=== PATIENT | male | born 1975 | race Caucasian/White ===

== ENCOUNTER 2020-05-07 | Observation (INO) ==
[2020-05-07] MEDS ORDERED: Ringers Solution, Lactated 1,000 ML IVC ONE ×3 (00:03→03:11)
[2020-05-07 00:57] LABS: Amphetamine Screen,Urine Positive ng/mL (Cutoff=1000); Barbiturate Screen,Urine Negative ng/mL (Cutoff=200); Benzodiazepines Screen,Urine Negative ng/mL (Cutoff=200); Cannabinoid Screen,Urine Negative ng/mL (Cutoff = 50); Cocaine Screen,Urine Negative ng/mL (Cutoff= 300); Opiate Screen,Urine Negative ng/mL (Cutoff=300); Phencyclidine Screen,Urine Negative ng/mL (Cutoff=25)
[2020-05-07 01:09] LABS: VBG HCO3 26 mEq/L (21-27); VBG PCO2 70 mmHg (41-51); VBG PH 7.18 pH Units (7.32-7.42); VBG PO2 43 mmHg (25-50)
[2020-05-07 01:09] LABS: Immature Granulocytes % 0.4 % (0-4); Red Cell Distribution Width 12.8 % (11.5-14.5)
[2020-05-07 01:10] LABS: INR 1.1; Prothrombin Time 12.5 Seconds (9.4-12.1)
[2020-05-07 01:11] LABS: Basophils % 0.3 %; Hemoglobin 14.9 g/dL (12.9-16.9); Lymphocytes # 0.7 K/mcL (0.6-4.6); Mean Corpuscular HGB Conc 26.9 g/dL (31.6-35.5); Mean Corpuscular Hemoglobin 29.8 pg (28.0-33.3); Mean Corpuscular Volume 110.6 fL (83.0-100.0); Mean Platelet Volume 11.5 fL (9.4-12.4); Monocytes # 0.7 K/mcL (0.0-1.3); Monocytes % 5.1 %; Neutrophils # 12.5 K/mcL (1.6-8.9); Platelet Count 300 K/mcL (140-400); Segmented Neutrophils % 89.2 %
[2020-05-07 01:12] LABS: Hematocrit 55.3 % (37.5-50.1)
[2020-05-07 01:13] LABS: Activated Partial Thrombo Time 23.9 Seconds (26.0-36.0)
[2020-05-07] MEDS ORDERED: cefTRIAXone 1,000 MG in Water for inj. (sterile) 10 ML IVP ONE (01:14)
[2020-05-07 01:45] LABS: Platelet Estimate Normal (Normal); Poikilocytosis 1+ (Not Present)
[2020-05-07 01:46] LABS: Anisocytosis 1+ (Not Present); Hypochromasia Present (Not Present)
[2020-05-07] MEDS ORDERED: Potassium Chloride 40 MEQ, Lidocaine 1% 2 ML in 0.9 % Sodium Chloride 500 ML IVPB ONE (02:03)
[2020-05-07 02:04] LABS: Acetaminophen < 10 mcg/mL (10-20); Alanine Aminotransferase 55 Units/L (7-52); Albumin/Globulin Ratio 1.1 (1.1-2.2); Alkaline Phosphatase 193 Units/L (34-104); Aspartate Amino Transferase 21 Units/L (13-39); BUN/Creatinine Ratio 20 (6-26); Bilirubin,Total 0.4 mg/dL (0.3-1.0); Blood Urea Nitrogen 30 mg/dL (6-20); Calcium 9.8 mg/dL (8.6-10.3); Carbon Dioxide 21 mEq/L (23-29); Chloride 98 mEq/L (98-107); Ethanol < 10 mg/dL (Less than 10); Globulin 3.8 g/dL (2.4-3.5); Magnesium 2.5 mg/dL (1.6-2.6); Osmolality,Calculated 380 (280-300); Phosphorous 4.4 mg/dL (2.7-4.5); Potassium 2.4 mEq/L (3.5-5.1); Salicylate < 2.5 mg/dL (15.0-30.0); Sodium 134 mEq/L (136-145); Total Protein 7.8 g/dL (6.4-8.9); Troponin I 0.03 ng/mL (< 0.04); eGFR For African Americans > 60 (> 60); eGFR For Non-African Americans 50 (> 60)
[2020-05-07 04:17] LABS: Alanine Aminotransferase 53 Units/L (7-52); Albumin 3.9 g/dL (3.5-5.7); Albumin/Globulin Ratio 1.1 (1.1-2.2); Alkaline Phosphatase 183 Units/L (34-104); Aspartate Amino Transferase 20 Units/L (13-39); BUN/Creatinine Ratio 20 (6-26); Bilirubin,Total 0.4 mg/dL (0.3-1.0); Blood Urea Nitrogen 30 mg/dL (6-20); Calcium 9.7 mg/dL (8.6-10.3); Carbon Dioxide 23 mEq/L (23-29); Chloride 107 mEq/L (98-107); Globulin 3.6 g/dL (2.4-3.5); Glucose 1423 mg/dL (70-105); Osmolality,Calculated 374 (280-300); Potassium 2.6 mEq/L (3.5-5.1); Sodium 142 mEq/L (136-145); Total Protein 7.5 g/dL (6.4-8.9); eGFR For African Americans > 60 (> 60); eGFR For Non-African Americans 50 (> 60)
[2020-05-07] MEDS ORDERED: Naloxone 0.4 MG/ML INJ IVP PRN (05:19)
[2020-05-07] MEDS ORDERED: Ondansetron 4 MG/2 ML VIAL IVP PRN (05:19)
[2020-05-07 05:27] LABS: ABG Base Excess -2 mEq/L (-2 to 3); ABG HCO3 27 mEq/L (21-27); ABG Oxygen Saturation 99 % (95-98); ABG PCO2 63 mmHg (35-45); ABG PH 7.25 pH Units (7.32-7.45); ABG PO2 144 mmHg (85-104); ABG TCO2 29 mEq/L (20-26); Blood Gas Modality BiLevel
[2020-05-07 06:13] LABS: Adenovirus Not Detected (Not Detect); Bordetella Pertussis Not Detected (Not Detect); Chlamydophila pneumoniae Not Detected (Not Detect); Coronavirus 229E Not Detected (Not Detect); Coronavirus HKU1 Not Detected (Not Detect); Coronavirus NL63 Not Detected (Not Detect); Coronavirus OC43 Not Detected (Not Detect); Human Metapneumovirus Not Detected (Not Detect); Human Rhinovirus/Enterovirus Not Detected (Not Detect); Influenza A Subtype 2009 H1 Not Detected (Not Detect); Influenza B Not Detected (Not Detect); Mycoplasma pneumoniae Not Detected (Not Detect); Parainfluenza Virus 1 Not Detected (Not Detect); Parainfluenza Virus 2 Not Detected (Not Detect); Parainfluenza Virus 3 Not Detected (Not Detect); Parainfluenza Virus 4 Not Detected (Not Detect); Respiratory Syncytial Virus Not Detected (Not Detect); SARS-CoV-2 Not Detected (Not Detect)
[2020-05-07] MEDS ORDERED: Dexmedetomidine HCl 400 MCG/100 ML MLS IVC ONE (06:17)
[2020-05-07 06:29] LABS: VBG HCO3 28 mEq/L (21-27); VBG PCO2 65 mmHg (41-51); VBG PH 7.25 pH Units (7.32-7.42); VBG PO2 49 mmHg (25-50)
[2020-05-07 06:34] LABS: Glucose 1825 mg/dL (70-105)
[2020-05-07] MEDS: Ringers Solution, Lactated 1,000 ML IVC SCH ×2 (06:48→13:10)
[2020-05-07] MEDS: Dexmedetomidine HCl 400 MCG/100 ML MLS IVC SCH ×4 (06:55→22:50)
[2020-05-07 07:28] LABS: Estimated Average Glucose 355 mg/dl
[2020-05-07] MEDS: Piperacillin/Tazobactam 3.375 GM in 0.9 % Sodium Chloride Mini Bag 100 ML IVPB SCH ×2 (07:47→16:14)
[2020-05-07] MEDS ORDERED: Vancomycin 1,750 MG/517.5 ML IV.SOLN IVPB ONE (08:00)
[2020-05-07 09:29] LABS: Calcium 10.3 mg/dL (8.6-10.3); Potassium 3.1 mEq/L (3.5-5.1)
[2020-05-07 10:55] LABS: VBG HCO3 28 mEq/L (21-27); VBG PCO2 70 mmHg (41-51); VBG PH 7.21 pH Units (7.32-7.42); VBG PO2 46 mmHg (25-50)
[2020-05-07 11:00] LABS: VBG Ionized Calcium 1.35 mmol/L (1.15-1.35)
[2020-05-07 11:19] LABS: Albumin 3.6 g/dL (3.5-5.7); Albumin/Globulin Ratio 1.1 (1.1-2.2); Bilirubin,Total 0.5 mg/dL (0.3-1.0); Calcium 9.9 mg/dL (8.6-10.3); Globulin 3.4 g/dL (2.4-3.5); Magnesium 2.5 mg/dL (1.6-2.6); Phosphorous 2.6 mg/dL (2.7-4.5); Potassium 3.4 mEq/L (3.5-5.1)
[2020-05-07] MEDS ORDERED: *HR* Midazolam HCl 5 MG/5 ML VIAL IVP ONE (13:14)
[2020-05-07 13:24] LABS: Bacteria,Urine Few per hpf (None-Few); Bilirubin,Urine Negative (Negative); Blood,Urine Moderate (Negative); Clarity,Urine Clear (Clear); Color,Urine Light-Yellow (Yellow); Glucose,Urine (UA) >=1000 mg/dL (Normal); Ketones,Urine Negative (Negative); Leukocyte Esterase,Urine Negative (Negative); Mucus,Urine Few per lpf (None-Few); Nitrite,Urine Negative (Negative); Protein,Urine Trace mg/dL (Neg-Trace); Specific Gravity,Urine > 1.030 (1.010-1.025); Urobilinogen,Urine Normal (Normal); WBC,Urine 15-30 per hpf (0-3)
[2020-05-07 13:33] LABS: Creatinine,Urine 65 mg/dL; Sodium, Urine < 10.0 mEq/L
[2020-05-07 15:14] LABS: Calcium 9.6 mg/dL (8.6-10.3); Potassium 3.9 mEq/L (3.5-5.1)
[2020-05-07] MEDS ORDERED: D5% in 0.45% NACL w KCl 20 MEQ/1,000 ML MLS IVC PRN (15:20)
[2020-05-07] MEDS ORDERED: *HR* Dextrose 50 % in Water (Vial) 50 ML VIAL IVP PRN (15:20)
[2020-05-07] MEDS ORDERED: Insulin Human Regular 100 UNIT in 0.9 % Sodium Chloride 100 ML IVC SCH (15:30)
[2020-05-07] MEDS: Insulin Human Regular 100 UNIT in 0.9 % Sodium Chloride 100 ML IVC SCH (16:00)
[2020-05-07] MEDS: *HR* Heparin 5,000 UNIT/ML VIAL SQ SCH (16:14)
[2020-05-07 18:46] LABS: Potassium 2.2 mEq/L (3.5-5.1)
[2020-05-07] MEDS ORDERED: Potassium Chloride 40 MEQ in D5% in Water 1,000 ML IVC SCH (19:00)
[2020-05-07] MEDS ORDERED: *HR* PHENYLEPHRINE 1,000 MCG/10 ML SYRINGE IVP ONE (19:34)
[2020-05-07] MEDS ORDERED: EPHEDrine 50 MG/ML VIAL ONE (19:35)
[2020-05-07] MEDS ORDERED: *HR* FentaNYL (PF) 100 MCG/2 ML VIAL ONE (19:35)
[2020-05-07] MEDS ORDERED: *HR* Succinylcholine 200 MG/10 ML VIAL IVP ONE (19:35)
[2020-05-07] MEDS ORDERED: *HR* Etomidate 40 MG/20 ML VIAL IVP ONE (19:36)
[2020-05-07] MEDS ORDERED: 0.9 % Sodium Chloride 1,000 ML ONE (19:38)
[2020-05-07] MEDS: Norepinephrine 4 MG/254 ML IV.SOLN IVC SCH (19:46)
[2020-05-07] MEDS ORDERED: Vancomycin 1,250 MG/262.5 ML IV.SOLN IVPB SCH (20:00)
[2020-05-07] MEDS ORDERED: Potassium Chloride Elixir 20 MEQ/15 ML UDC GTUBE ONE (20:06)
[2020-05-07] MEDS ORDERED: Artificial Tears SOLN 15 ML BOTTLE BOTH EYES PRN (20:10)
[2020-05-07 20:38] LABS: ABG Base Excess -3 mEq/L (-2 to 3); ABG HCO3 25 mEq/L (21-27); ABG Oxygen Saturation 96 % (95-98); ABG PCO2 51 mmHg (35-45); ABG PH 7.29 pH Units (7.32-7.45); ABG PO2 93 mmHg (85-104); ABG TCO2 26 mEq/L (20-26); Blood Gas Modality ASSIST CONTROL; Blood Gas VT 500 cc
[2020-05-07 20:46] LABS: VBG Ionized Calcium 1.38 mmol/L (1.15-1.35)
[2020-05-07] MEDS: FentaNYL (PF) 1,000 MCG/100 ML IV.SOLN IVC SCH (20:55)
[2020-05-07 21:07] LABS: BUN/Creatinine Ratio 18 (6-26); Blood Urea Nitrogen 42 mg/dL (6-20); Calcium 9.5 mg/dL (8.6-10.3); Carbon Dioxide 24 mEq/L (23-29); Chloride 128 mEq/L (98-107); Glucose 771 mg/dL (70-105); Magnesium 2.7 mg/dL (1.6-2.6); Osmolality,Calculated 376 (280-300); Phosphorous < 1.0 mg/dL (2.7-4.5); Sodium 159 mEq/L (136-145); eGFR For African Americans 37 (> 60); eGFR For Non-African Americans 30 (> 60)
[2020-05-07] MEDS: Vancomycin 1,500 MG/265 ML IV.SOLN IVPB SCH (21:35)
[2020-05-07] MEDS: Chlorhexidine Rinse 15 ML MOUTHWASH MM SCH (22:06)
[2020-05-07 23:37] LABS: BUN/Creatinine Ratio 18 (6-26); Blood Urea Nitrogen 44 mg/dL (6-20); Calcium 9.2 mg/dL (8.6-10.3); Carbon Dioxide 23 mEq/L (23-29); Chloride 126 mEq/L (98-107); Glucose 799 mg/dL (70-105); Magnesium 2.5 mg/dL (1.6-2.6); Osmolality,Calculated 366 (280-300); Phosphorous < 1.0 mg/dL (2.7-4.5); Potassium 6.3 mEq/L (3.5-5.1); Sodium 153 mEq/L (136-145); eGFR For African Americans 34 (> 60); eGFR For Non-African Americans 28 (> 60)
[2020-05-08] MEDS: Piperacillin/Tazobactam 3.375 GM in 0.9 % Sodium Chloride Mini Bag 100 ML IVPB SCH ×2 (00:16→09:23)
[2020-05-08] MEDS: Artificial Tears SOLN 15 ML BOTTLE BOTH EYES SCH ×5 (00:34→12:40)
[2020-05-08] MEDS: Norepinephrine 4 MG/254 ML IV.SOLN IVC SCH ×4 (00:40→12:41)
[2020-05-08 01:28] LABS: Calcium 9.1 mg/dL (8.6-10.3); Potassium 6.9 mEq/L (3.5-5.1)
[2020-05-08] MEDS ORDERED: Insulin Human Regular 10 UNIT in 0.9 % Sodium Chloride 10 ML IV ONE (01:32)
[2020-05-08] MEDS: FentaNYL (PF) 1,000 MCG/100 ML IV.SOLN IVC SCH ×2 (01:39→07:30)
[2020-05-08] MEDS ORDERED: Albuterol Neb 7.5 MG, Sodium Chloride for inhalation 12 ML IH ONE (01:44)
[2020-05-08] MEDS ORDERED: Albuterol 2.5 MG/3 ML NEBULIZER IH ONE (02:06)
[2020-05-08] MEDS ORDERED: Albuterol 2.5 MG/3 ML NEBULIZER ONE (02:08)
[2020-05-08 02:17] LABS: ABG Base Excess -1 mEq/L (-2 to 3); ABG HCO3 26 mEq/L (21-27); ABG Oxygen Saturation 96 % (95-98); ABG PCO2 53 mmHg (35-45); ABG PO2 89 mmHg (85-104); ABG TCO2 28 mEq/L (20-26); Blood Gas Modality VC; Blood Gas VT 500 cc
[2020-05-08 02:38] LABS: VBG Ionized Calcium 1.29 mmol/L (1.15-1.35)
[2020-05-08 03:05] LABS: Calcium 9.3 mg/dL (8.6-10.3)
[2020-05-08] MEDS ORDERED: Acetaminophen IV 1,000 MG/100 ML BAG IVPB ONE (03:26)
[2020-05-08] MEDS ORDERED: D5% in Water 1,000 ML IVC SCH (04:15)
[2020-05-08 04:30] LABS: ABG Base Excess -5 mEq/L (-2 to 3); ABG HCO3 23 mEq/L (21-27); ABG Oxygen Saturation 95 % (95-98); ABG PCO2 53 mmHg (35-45); ABG PH 7.25 pH Units (7.32-7.45); ABG PO2 87 mmHg (85-104); ABG TCO2 25 mEq/L (20-26); Blood Gas Modality ASSIST CONTROL; Blood Gas VT 500 cc
[2020-05-08 04:45] LABS: Basophils # 0.1 K/mcL (0.0-0.2); Basophils % 0.4 %; Eosinophils # 0.1 K/mcL (0.0-0.6); Eosinophils % 0.8 %; Hematocrit 42.2 % (37.5-50.1); Hemoglobin 13.5 g/dL (12.9-16.9); Immature Granulocytes % 0.3 % (0-4); Lymphocytes # 2.9 K/mcL (0.6-4.6); Lymphocytes % 20.3 %; Mean Corpuscular Hemoglobin 30.4 pg (28.0-33.3); Monocytes # 1.1 K/mcL (0.0-1.3); Monocytes % 8.1 %; Neutrophils # 9.9 K/mcL (1.6-8.9); Platelet Count 227 K/mcL (140-400); Red Blood Count 4.44 M/mcL (4.19-5.50); Red Cell Distribution Width 13.1 % (11.5-14.5); Segmented Neutrophils % 70.1 %; White Blood Count 14.1 K/mcL (4.3-11.1)
[2020-05-08 04:53] LABS: Magnesium 2.3 mg/dL (1.6-2.6)
[2020-05-08 04:54] LABS: Calcium 9.2 mg/dL (8.6-10.3); Potassium 5.6 mEq/L (3.5-5.1)
[2020-05-08] MEDS: Insulin Human Regular 100 UNIT in 0.9 % Sodium Chloride 100 ML IVC SCH (05:54)
[2020-05-08 06:41] LABS: VBG Ionized Calcium 1.29 mmol/L (1.15-1.35)
[2020-05-08] MEDS: *HR* Heparin 5,000 UNIT/ML VIAL SQ SCH (06:50)
[2020-05-08 07:01] LABS: Magnesium 2.3 mg/dL (1.6-2.6); Phosphorous 1.5 mg/dL (2.7-4.5); Potassium 5.2 mEq/L (3.5-5.1)
[2020-05-08 07:19] LABS: Creatine Kinase > 20000 Units/L (30-223)
[2020-05-08 07:20] LABS: Alanine Aminotransferase 45 Units/L (7-52); Albumin 3.3 g/dL (3.5-5.7); Albumin/Globulin Ratio 1.1 (1.1-2.2); Alkaline Phosphatase 87 Units/L (34-104); Aspartate Amino Transferase 62 Units/L (13-39); Bilirubin,Indirect 0.2 mg/dL (0.0-1.0); Bilirubin,Total 0.2 mg/dL (0.3-1.0); Total Protein 6.3 g/dL (6.4-8.9)
[2020-05-08] MEDS ORDERED: Hydrocortisone Sodium Succ 100 MG/2 ML VIAL IVP SCH (08:15)
[2020-05-08] MEDS ORDERED: Vasopressin 40 UNIT in D5% in Water 100 ML IVC SCH (08:15)
[2020-05-08] MEDS ORDERED: Pantoprazole 40 MG VIAL IVP SCH (09:00)
[2020-05-08] MEDS ORDERED: SODIUM ZIRCONIUM CYCLOSILICATE 5 GM POWD.PACK PO SCH (09:00)
[2020-05-08] MEDS ORDERED: Perflutren Lipid Microsphere 1.3 ML in 0.9 % Sodium Chloride 8.7 ML IVP PRN (09:19)
[2020-05-08] MEDS: Chlorhexidine Rinse 15 ML MOUTHWASH MM SCH (09:23)
[2020-05-08 09:29] LABS: Basophils # 0.1 K/mcL (0.0-0.2); Basophils % 0.5 %; Eosinophils # 0.2 K/mcL (0.0-0.6); Eosinophils % 1.3 %; Hematocrit 39.9 % (37.5-50.1); Hemoglobin 12.8 g/dL (12.9-16.9); Immature Granulocytes % 0.5 % (0-4); Lymphocytes # 3.4 K/mcL (0.6-4.6); Mean Corpuscular HGB Conc 32.1 g/dL (31.6-35.5); Mean Corpuscular Hemoglobin 30.5 pg (28.0-33.3); Mean Corpuscular Volume 95.2 fL (83.0-100.0); Mean Platelet Volume 10.9 fL (9.4-12.4); Monocytes # 1.1 K/mcL (0.0-1.3); Monocytes % 7.5 %; Neutrophils # 9.8 K/mcL (1.6-8.9); Platelet Count 200 K/mcL (140-400); Red Blood Count 4.19 M/mcL (4.19-5.50); Red Cell Distribution Width 13.4 % (11.5-14.5); Segmented Neutrophils % 67.2 %; White Blood Count 14.6 K/mcL (4.3-11.1)
[2020-05-08 09:34] LABS: INR 1.2
[2020-05-08] MEDS: Vancomycin 1,500 MG/265 ML IV.SOLN IVPB SCH (09:50)
[2020-05-08 09:51] LABS: Calcium 8.9 mg/dL (8.6-10.3); Magnesium 2.4 mg/dL (1.6-2.6); Potassium 4.8 mEq/L (3.5-5.1)
[2020-05-08 09:55] LABS: VBG Ionized Calcium 1.31 mmol/L (1.15-1.35)
[2020-05-08 10:04] LABS: Thyroid Stimulating Hormone 0.318 mcIU/mL (0.340-5.600)
[2020-05-08 12:34] VITALS: BP 93/66
[2020-05-08] MEDS ORDERED: Clindamycin 900 MG/50 ML 900 MG/50 ML IV.SOLN IVPB SCH (16:00)
== END 2020-05-08 13:15 | disposition short-term general hospital (02) ==
LOC: EMEROOARM → ICNU
PROVIDERS: ADMIT Student in an Organized Health Care Education/Training Program; ATTEND Student in an Organized Health Care Education/Training Program